=== PATIENT | male | born 1995 | race Caucasian/White ===

== ENCOUNTER 2023-07-08 07:22 | Outpatient (OUT) | payer OTHER, SELFPAY ==
[2023-07-08 08:04] LABS: Basophils Percent Auto 0.7 % (0.2-2.0); Eosinophils Absolute Auto 0.2 10^3/uL (0.0-0.7); Eosinophils Percent Auto 2.8 % (0.9-7.0); Hematocrit 40.7 % (42.0-54.0); Hemoglobin 13.8 g/dL (14.0-18.0); Immature Granulocytes Abs Auto 0.02 10^3/uL (0.00-0.03); Immature Granulocytes Pct Auto 0.3 % (0.0-0.5); Lymphocytes Absolute Auto 1.6 10^3/uL (1.2-3.8); Lymphocytes Percent Auto 25.7 % (20.5-60.0); Mean Corpuscular HGB Conc 33.9 g/dL (29.9-35.2); Mean Corpuscular Hemoglobin 30.2 pg (25.9-34.0); Mean Corpuscular Volume 89.1 fL (80.0-94.0); Mean Platelet Volume 11.4 fL (9.5-13.5); Monocytes Absolute Auto 0.7 10^3/uL (0.3-0.8); Monocytes Percent Auto 11.2 % (1.7-12.0); Neutrophils Absolute Auto 3.6 10^3/uL (1.4-6.5); Neutrophils Percent Auto 59.3 % (43.0-75.0); Platelet Count 210 10^3/uL (150-450); Red Blood Count 4.57 10^6/uL (4.70-6.10); Red Cell Distribution Width 11.9 % (11.0-15.0); White Blood Count 6.1 10^3/uL (4.0-11.0)
[2023-07-08 08:16] LABS: Estimated Average Glucose 103 mg/dL; Glycohemoglobin A1C 5.2 % (4.5-6.2)
[2023-07-08 09:15] LABS: Alanine Aminotransferase 51 U/L (16-63); Albumin Globulin Ratio 1.1; Albumin Level 3.8 g/dL (3.4-5.0); Alkaline Phosphatase 86 U/L (46-116); Aspartate Amino Transferase 25 U/L (15-37); BUN Creatinine Ratio 18.4; Bilirubin Total 0.5 mg/dL (0.2-1.0); Calcium 9.4 mg/dL (8.5-10.1); Carbon Dioxide 29.2 mmol/L (21.0-32.0); Chloride 101 mmol/L (98-107); Chol HDL Ratio 4.2; Cholesterol 167 mg/dL (<=200); Estimated GFR (African America >60 (>=60); Estimated GFR (Non-African Ame >60 (>=60); Globulin 3.5 g/dL; Glucose 110 mg/dL (74-106); HDL Cholesterol 40 mg/dL (40-60); LDL Cholesterol Calculated 100.2 mg/dL; Potassium 4.2 mmol/L (3.5-5.1); Sodium 138 mmol/L (136-145); Total Protein 7.3 g/dL (6.4-8.2); Triglycerides 134 mg/dL (<=150); VLDL CHOLESTEROL 26.8 mg/dL
[2023-07-09 12:14] LABS: Insulin 23.3 uIU/mL (2.6-24.9)
== END 2023-07-08 07:23 | disposition home or self-care (01) ==
PROVIDERS: PCP Nurse Practitioner Family; Visit Provider Nurse Practitioner Family
DX: Z00.00 Encounter for general adult medical examination without abnormal findings (principal)
CPT/HCPCS: 36415; 80053; 80061; 83036; 83525; 85025

== ENCOUNTER 2024-04-05 08:25 | Emergency (ER) | payer BC, SELFPAY ==
[2024-04-05 08:30] VITALS: BP 127/86; PULSE 98; TEMP 37.2; O2SAT 96; BMI 39.2
--- OUTSIDE RECORDS SUMMARY | 2024-04-05 08:38 | XMS_ITS | CCD ---
Author Organization [facility] Care Team Providers Care Study Manager Name Role Phone PHYSICIAN, DEFAULT Unavailable Unavailable PHYSICIAN, DEFAULT Unavailable Unavailable JULIO ESPINOSA JR Unavailable Unavailable MISRose, DR BARFIELD Primary Care Unavailable LIZETTE CASTELLON Consulting Unavailable ZIA FLORES Admitting Unavailable ZIA FLORES Attending Unavailable Problems Problem Classification Problem Date Documented Da te Episodic/Chronic Genitourinary symptoms and ill-defined conditions (4 sources) Urethral discharge, unspecified; Translations: [URETHRAL DISCHARGE UNSPECIFIED] Onset: 04-21-2022 Episodic Other aftercare (1 source) Other alf (current) drug therapy; Translations: [[facility] CURRENT DRUG THERAPY] Onset: 04-25-2022 Episodic Results Test Name Value Interpretation Reference Range Facil ity 36on 09-04-2023 36 Patient will need an appointment for any further refills Normal [facility] CHLAMYDIA/GONOCOCCUS DARRELL (SW AB/URINE/PAPon 04-22-2022 Chlamydia trachomatis, DARRELL Negative Normal Negative [facility] Comment on above: Performed By: #### C T/NGNA #### [facility] [address] [address] [address] Dimple Vizcaino Neisseria gonorrhoeae, DARRELL Negative Normal Negative [facility] Comment on above: Performed By: #### C T/NGNA #### [facility] [address] [address] [address] Dimple Vizcaino ER URINE PROFILEon 3 Bilirubin Ql (U) Negative Normal NEGATIVE [facility] Comment on above: Performed By: #### E RUR #### [facility] [address] [address] [address] Dimple Vizcaino Clarity (U) CLEAR Normal CLEAR [facility] Comment on above: Performed By: #### E RUR #### [facility] [address] [place] [address] Dr. Dimple Vizcaino Color (U) LT. YELLOW Normal YELLOW [facility] Comment on above: Performed By: #### E RUR #### [facility] [address] [place] [address] Dr. Dimple ODEN A micrscopic examination will be performed if indicated. Normal [facility] Comment on above: Performed By: #### E RUR #### [facility] [address] [place] [address] Dr. Dimple Vizcaino Glucose Ql (U) Negative Normal NEGATIVE [facility] Comment on above: Performed By: #### E RUR #### [facility] [address] [place] [address] Dr. Dimple Vizcaino Hemoglobin Ql (U) Negative Normal NEGATIVE [facility] Comment on above: Performed By: #### E RUR #### [facility] [address] [place] [address] Dr. Dimple Vizcaino Ketones Ql (U) Negative Normal NEGATIVE [facility] Comment on above: Performed By: #### E RUR #### [facility] [address] [place] [address] Dr. Dimple Vizcaino LEUKOCYTES Negative Normal NEGATIVE [facility] Comment on above: Performed By: #### E RUR #### [facility] [address] [place] [address] Dr. Dimple Vizcaino Nitrite Ql (U) Negative Normal NEGATIVE [facility] Comment on above: Performed By: #### E RUR #### [facility] [address] [place] [address] Dr. Dimple Vizcaino pH (U) 5.5 [pH] Normal 5-9 [facility] Comment on above: Performed By: #### E RUR #### [facility] [address] [place] [address] Dr. Dimple Vizcaino SPEC GRAVITY 1.015 Normal 1.005-<=1.[address] [facility] Comment on above: Performed By: #### E RUR #### [facility] [address] [place] [address] Dr. Dimple Vizcaino UA PROTEIN Negative Normal NEGATIVE/ TRACE [facility] Comment on above: Performed By: #### E RUR #### [facility] [address] [address] [address] Dimple Vizcaino UR MICRO IND NOT INDICATED Normal [facility] Comment on above: Performed By: #### E RUR #### [facility] [address] [address] [address] Dimple Vizcaino Urobilinogen Qn (U) 0.2 {Vida'U}/dL Normal 0.2 - 1. 0 [facility] Comment on above: Performed By: #### E RUR #### [facility] [address] [address] [address] Dimple Vizcaino Encounters Encounter Date Encounter Type Care Provider Facility Start: 04-21-2022 End: 04-21-[address] DOCTOR LAZO Facility: Start: 03-08-2018 End: 03-09-2018 Patient encounter procedure DEFAULT PHYSICIAN Facility:[facility] Payers Date Payer Category Payer Unknown [id number] 1967 Unknown [id number] 1961 Unknown [id number] Unknown Summary Purpose Family History No Family History Records FoundNo Family History Records FoundNo Family History Records Found Advance Directives No Advanced Directives Records FoundNo Advanced Directives Records FoundNo Advanced Directives Records Found Additional Source Comments (unrecognized sect ion and content) No Status Records FoundNo Status Records FoundNo Status Records Found INFORMATION SOURCE (unrecogn ized section and content) DATE CREATED AUTHOR 03/09/2018 [facility] DATE CREATED AUTHOR AUTHOR'S ORGANIZ ATION 04/28/2022 [facility] DATE CREATED AUTHOR AUTHOR'S ORGANIZ ATION 09/05/2023 [facility] FOR RECORDS PERTAINING TO PATIENTS WHO ARE OR HAVE BEEN ENROLLED IN A CHEMICAL DEPENDENCY/SUBSTANCEABUSE PROGRAM, SOME INFORMATION MAY BE OMITTED. This clinical summary was aggregated from multiple sources. Caution should be exercised in using it in the provision of clinical care. This summary normalizes information from multiple sources, and as a consequence, information in this document may materially change the coding, format and clinical context of patient data. In addition, data may be omitted in some cases. CLINICAL DECISIONS SHOULD BE BASED ON THE PRIMARY CLINICAL RECORDS. [facility] [employer] [facility]. provides no warranty or guarantee of the accuracy or completeness of information in this document.
[2024-04-05 09:08] LABS: Influenza Virus A Antigen Negative; Influenza Virus B Antigen Negative; Internal Control Within Normal Limits; SARS-CoV-2 Ag NEGATIVE (NEGATIVE)
[2024-04-05] MEDS: KETOROLAC TROMETHAMINE 30 MG/ML VIAL IM (09:50)
[2024-04-05 09:51] VITALS: BP 113/76; PULSE 98; O2SAT 99
[2024-04-05] MEDS: METOCLOPRAMIDE HCL 10 MG TABLET PO (09:51)
--- NOTE | 2024-04-05 11:20 | ED_ITS ---
HPI HPI - General Adult General Chief complaint: Nausea/Vomiting/Diarrhea Stated complaint: DIARRHEA, HEADACHE Time Seen by Provider: 04/05/24 08:40 Source: patient Mode of arrival: walk-in Limitations: no limitations History of Present Illness HPI narrative: Patient is a 29-year-old male who is presenting to the ER today with chief complaint myalgia, arthralgia, headache, diarrhea with no nausea vomiting. Patient has 2 children at home, 1 of which is 10 months old. Patient works in construction. Patient went into work today and then came to the ER because he is not feeling well. Patient has no exposure to any specific bacterial virus that he is aware of. Patient does not have a history of headaches or migraines. Patient's headache was not the worse headache of her life, not sudden onset, not thunderclap in nature. No rash. No recent traveling. No other acute complaints. All systems are negative except as noted/marked. All systems reviewed and otherwise negative. Nurses note and vital signs reviewed and patient is not hypoxic. General: The patient appears well and in no apparent distress. Patient is resting comfortably on cart. Patient is not toxic, lethargic, or listless Skin: Warm, dry, no pallor noted. There is no rash noted. No petechiae, purpura. No rash. Head: Normocephalic, atraumatic; no midline or paracervical tenderness to palpation. No nuchal rigidity, no meningismus, no other acute findings, no neck pain. No tenderness to palpation to bilateral frontal maxillary sinus. Eye: Normal conjunctiva, no drainage, EOMI. PERRL Ears, Nose, Mouth, and Throat: oral mucosa is moist. Nares patent. Mouth without vesicles. Cardiovascular: Regular Rate and Rhythm, no murmur, gallop, rub Respiratory: Patient is in no distress, no accessory muscle use, lungs are clear to auscultation, no wheezing, rales or rhonchi Back: non-tender, no CVA tenderness bilaterally to percussion. No CT LS midline pain GI: no tenderness to palpation, no masses appreciated. No rebound, guarding, or rigidity noted. No distention Musculoskeletal: Patient has full range of motion of all of the extremities, no motor, sensory, or focal neurological deficits Neurological: A&O x4, normal speech Psychiatric: Cooperative Related Data Home Medications ?Medication ?Instructions ?Recorded ?Confirmed carvedilol 25 mg tablet mg 04/05/24 chlorthalidone 25 mg tablet mg 04/05/24 irbesartan 300 mg tablet mg 04/05/24 losartan 100 mg tablet mg 04/05/24 simvastatin 40 mg tablet mg 04/05/24 Previous Rx's ?Medication ?Instructions ?Recorded ondansetron 4 mg disintegrating 4 mg PO Q4H PRN nausea and 04/05/24 tablet vomiting 3 days #6 tabs prochlorperazine maleate 10 mg 10 mg PO Q12H PRN nausea and 04/05/24 tablet (Compazine) vomiting, headache 7 days #7 tabs Allergies Allergy/AdvReac Type Severity Reaction Status Date / Time No Known Drug Allergies Allergy Verified 04/05/24 08:35 Opioid HPI Opioid Management Most Recent Opioid Data: Last Pain Scale 8 04/05/24 09:50 04/05/24 Last MAY Pain Assessment 04/05/24 09:50 PFSH PFSH Social History Little interest or pleasure in doing things: not at all Feeling down, depressed, or hopeless: not at all Exam Constitutional Vital Signs, click to edit/add: Last Vital Signs Temp 98.9 F 04/05/24 08:30 Pulse 98 H 04/05/24 09:51 Resp 18 04/05/24 09:51 BP 113/76 04/05/24 09:51 Pulse Ox 99 04/05/24 09:51 O2 Del Method Room Air 04/05/24 08:30 Course Vital Signs Vital signs: Vital Signs Temperature 98.9 F 04/05/24 08:30 Pulse Rate 98 H 04/05/24 08:30 Respiratory Rate 18 04/05/24 08:30 Blood Pressure 127/86 04/05/24 08:30 Pulse Oximetry 96 04/05/24 08:30 Oxygen Delivery Method Room Air 04/05/24 08:30 Temperature 98.9 F 04/05/24 08:30 Pulse Rate 98 H 04/05/24 09:51 Respiratory Rate 18 04/05/24 09:51 Blood Pressure 113/76 04/05/24 09:51 Pulse Oximetry 99 04/05/24 09:51 Oxygen Delivery Method Room Air 04/05/24 08:30 Medical Decision Making MDM Narrative Medical decision making narrative: Patient's influenza and COVID were negative. Patient was given Toradol and Reglan to help with headache and myalgia/arthralgia. Patient was given a work note. Patient will follow-up with PCP for further testing evaluation. Education was done for patient and along with treating children for flulike symptoms as well. 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 No questions at discharge Lab Data Labs: Lab Results 04/05/24 Range/Units 08:50 Influenza Type A Ag Negative Influenza Type B Ag Negative SARS-CoV-2 Ag (CV2AG) Negative (NEGATIVE) Discharge Plan Discharge Stand Alone Forms: Work/School Release Chief Complaint: Nausea/Vomiting/Diarrhea Clinical Impression: Flu-like symptoms, Diarrhea, Headache Patient Disposition: Home, Self-Care Time of Disposition Decision: 09:43 Condition: Fair Prescriptions / Home Meds: New prochlorperazine maleate [Compazine] 10 mg tablet 10 mg PO Q12H PRN (Reason: nausea and vomiting, headache) 7 Days Qty: 7 0RF ondansetron 4 mg tablet,disintegrating 4 mg PO Q4H PRN (Reason: nausea and vomiting) 3 Days Qty: 6 0RF No Action carvedilol 25 mg tablet chlorthalidone 25 mg tablet simvastatin 40 mg tablet losartan 100 mg tablet irbesartan 300 mg tablet Print Language: Nigerien Instructions: Acute Headache (ED), Acute Diarrhea (ED), Cold Symptoms (ED) Additional Instructions: Increase fluids at home, Gatorade, Powerade, or water. Alternate using DayQuil, NyQuil, and Flonase. Add Mucinex as well as needed. Alternate Tylenol and Motrin every 4 hours to help with fever control, body aches or joint pain. Use [id number] vitamin C, vitamin D3, and zinc to help fight infection and help with her immune system. Referrals: JOSEPH LANDRY [Primary Care Provider] - 1 week Discharge Date/Time: 04/05/24 09:55
== END 2024-04-05 09:55 | disposition home or self-care (01) ==
PROVIDERS: Emergency Provider Emergency Medicine; PCP Nurse Practitioner Family
DX: R19.7 Diarrhea, unspecified (principal); R51.9 Headache, unspecified; M79.10 Myalgia, unspecified site
CPT/HCPCS: 87804; 87811; 96372; 99284; J1885